=== PATIENT | female | born 2000 | race Caucasian/White ===

== ENCOUNTER → 2018-05-29 16:25 | Outpatient (CLI) | payer SELFPAY ==
[2018-05-29 17:44] LABS: Absolute Lymphocyte Count 2.63 X10^3/ul (0.83-4.51); Absolute Neutrophil Count 8.3 X10^3/uL (2.0-7.7); Basophil# 0.05 X10^3/uL; Basophil% 0.4 % (0-1); Eosinophil# 0.38 X10^3/uL; Eosinophils% 3.1 % (0-5); Hematocrit 40.6 % (37-47); Hemoglobin 13.6 g/dl (12.0-15.0); Lymphocyte # 2.63 X10^3/ul (4.0); Lymphocyte % 21.4 % (19-41); Mean Corp Hgb Conc 33.5 g/gl (32-36); Mean Corpuscular Hgb 28.6 pg (27.0-32.0); Mean Corpuscular Volume 85.5 fL (81-99); Monocyte# 0.87 X10^3/uL; Monocyte% 7.1 % (0-10); Neutrophil # 8.32 X10^3/uL (2.7-7.7); Neutrophil % 67.8 % (47-70); POSITIVE COUNT NO; POSITIVE DIFFERENTIAL NO; POSITIVE MORPHOLOGY NO; Platelet Count 382 K/mm3 (150-450); RBC Distribution Width CV 12.3 % (11.6-14.6); RBC Distribution Width SD 38.1 fl (35.1-43.9); Red Blood Count 4.75 M/mm3 (4.2-5.4); White Blood Count 12.3 K/mm3 (4.4-11.0)
[2018-05-29 18:18] LABS: AST(SGOT) 14 U/L (15-37); Alanine Aminotransfer ALT/SGPT 41 U/L (13-56); Albumin, Serum 3.8 g/dL (3.2-5.0); Alkaline Phosphatase 81 U/L (45-117); Anion Gap 9 (5-15); BUN 13 mg/dL (7-18); BUN/Creat Ratio 22.1 RATIO (10-20); Calcium,Total 8.7 mg/dL (8.5-10.1); Chloride 105 mmol/L (98-107); Creatinine, Serum 0.59 mg/dL (0.55-1.02); EST Glomerular Filtration Rate 138 mL/min (>60); Est Glom Filt Rate - Afr Amer 167 mL/min (>60); Globulin 3.8 g/dL (2.2-4.2); Glucose 91 mg/dL (74-106); Potassium 3.6 mmol/L (3.5-5.1); Protein, Total 7.6 g/dL (6.4-8.2); Sodium Level 141 mmol/L (136-145)
[2018-06-01 08:07] LABS: V-Zoster IgG (Immunity) 1253 index (Immune >165)
== END ==
PROVIDERS: Family Provider Internal Medicine; PCP Internal Medicine; Visit Provider Internal Medicine
DX: Z02.1 Encounter for pre-employment examination (principal); M08.00 Unspecified juvenile rheumatoid arthritis of unspecified site
CPT/HCPCS: 36415; 80053; 85025; 86787

== ENCOUNTER → 2019-06-10 08:50 | Outpatient (CLI) | payer OTHER, SELFPAY ==
[2019-06-09 14:25] VITALS: BMI 42.0
[2019-06-10 12:35] LABS: Absolute Lymphocyte Count 2.64 X10^3/uL (0.83-4.51); Absolute Neutrophil Count 7.1 X10^3/uL (2.0-7.7); Basophil# 0.09 X10^3/uL; Basophil% 0.8 % (0-1); Eosinophil# 0.41 X10^3/uL; Eosinophils% 3.7 % (0-5); Hematocrit 45.8 % (37-47); Hemoglobin 14.7 g/dL (12.0-15.0); Lymphocyte # 2.64 X10^3/ul (4.0); Lymphocyte % 24.1 % (19-41); Mean Corp Hgb Conc 32.1 g/dL (32-36); Mean Corpuscular Hgb 28.2 pg (27.0-32.0); Mean Corpuscular Volume 87.9 fL (81-99); Mean Platelet Vol. 9.1 fl (6.2-12.0); Monocyte% 6.4 % (0-10); NRBC Flagged by Analyzer 0 % (0-5); Neutrophil # 7.06 X10^3/uL (2.7-7.7); Neutrophil % 64.5 % (47-70); Platelet Count 378 K/mm3 (150-450); RBC Distribution Width CV 12.2 % (11.6-14.6); RBC Distribution Width SD 39.2 fl (35.1-43.9); Red Blood Count 5.21 M/mm3 (4.2-5.4)
[2019-06-10 13:06] LABS: ALB/GLOB Ratio 1.1 RATIO (0.9-2.4); AST(SGOT) 15 U/L (15-37); Alanine Aminotransfer ALT/SGPT 40 U/L (13-56); Alkaline Phosphatase 82 U/L (45-117); Anion Gap 6 (5-15); BUN 9 mg/dL (7-18); Calcium,Total 9.1 mg/dL (8.5-10.1); Chloride 105 mmol/L (98-107); Cholesterol 203 mg/dL (200); Creatinine, Serum 0.69 mg/dL (0.55-1.02); EST Glomerular Filtration Rate 114 mL/min (>60); Est Glom Filt Rate - Afr Amer 137 mL/min (>60); Globulin 3.7 g/dL (2.2-4.2); Glucose 98 mg/dL (74-106); High Density Lipoprotein 32 mg/dL; Potassium 4.4 mmol/L (3.5-5.1); Protein, Total 7.7 g/dL (6.4-8.2); Sodium Level 139 mmol/L (136-145); T4 Free Direct 0.79 ng/dL (0.76-1.46); Thyroid Stim Hormone (TSH) 1.68 uIU/mL (0.358-3.74); Triglycerides 453 mg/dL
== END ==
PROVIDERS: Family Provider Internal Medicine; PCP Internal Medicine; Visit Provider Internal Medicine
DX: F41.9 Anxiety disorder, unspecified (principal); F32.9 Major depressive disorder, single episode, unspecified; E66.01 Morbid (severe) obesity due to excess calories; Z68.41 Body mass index [BMI] 40.0-44.9, adult
CPT/HCPCS: 36415; 80053; 80061; 84439; 84443; 85025

== ENCOUNTER 2020-05-31 06:34 | Emergency (ER) | payer OTHER, SELFPAY ==
[2020-02-25 17:38] VITALS: BMI 42.0
[2020-05-31 06:35] VITALS: BP 154/103; PULSE 92; RESP 16; TEMP 36.8; O2SAT 96; BMI 45.4
--- NOTE | 2020-05-31 07:18 | ED.DCSUM_ITS ---
History of Present Illness Chief Complaint: Vag Bleeding Informant: Patient Pain: Pelvic Pain Onset: Month(s) Issue: Vaginal bleeding, Passing clots Control: BCP Narrative: Patient is a 20-year-old female with history of depression presenting with heavy vaginal bleeding. She states she has had abnormal vaginal bleeding for the past 5 and half months. States she is bled pretty much every day but most days is like a light flow. The past week and a half she is been bleeding very heavily and passing large clots. She states last night she saturated a 12-hour overnight pad within 4 and half hours. She does note increased pelvic cramping and discomfort. She is followed with [facility] and has had a transvaginal ultrasound swells her blood work to try to figure out what is going on. They have not come up with a cause at this point. Patient states she is dissatisfied with the level of care she is receiving she is also looking for a referral for a new DATA COLLECTION SPECIALIST. Patient states that she feels shaky and a little lightheaded and dizzy especially when she is having heavy flow. She has nausea associated with the pelvic cramping but none currently. She is been taking Motrin and Pamprin [id number] for her discomfort. She not had any today. She is currently on an oral contraceptive but does not feel that that is helped. She denies any other complaints or any urinary symptoms. Prior similar symptoms: Yes Past Medical History - Allergies and Home Meds Allergies/Adverse Reactions: Allergies Penicillins Allergy (Unknown, Verified 05/31/20 06:39) Hives amoxicillin [Amoxicillin] Allergy (Verified 05/31/20 06:39) Hives Primary Care Physician: Donnie Everett MD [Primary Care Provider] - Past Medical History: - - Vamsi, depression, juvenile rheumatoid arthritis, hyperlipidemia Surgical History: noncontributory Smoking Status: Never smoker Review of Systems General: Reports: - - Lightheaded, shaky. Denies: Chills, Fever, Sweats Eyes: Denies: Visual changes - bilaterally, Diplopia ENT: Denies: Rhinorrhea, Sore throat Cardiovascular: Denies: Chest pain, Palpitations Respiratory: Denies: Dyspnea, Cough, Dyspnea on exertion Gastrointestinal: Denies: Abdominal pain, Nausea, Vomiting, Diarrhea, Melena, Hematochezia Genitourinary: Reports: - - Heavy vaginal bleeding. Denies: Dysuria, Hematuria, Frequency Musculoskeletal: Denies: Back pain, Extremity Pain Skin: Denies: Rash, Wounds Neurological: Denies: Headache, Weakness, Numbness Physical Exam Vital Signs/Narrative: Vital Signs Temp Pulse Resp BP Pulse Ox 05/31/20 06:35 98.3 F 92 16 154/103 H 96 Inital Vital Signs reviewed: Yes General: Well nourished, Well developed Head: Normocephalic, Atraumatic Eyes: Perrl, EOMI. Negative for: Pale conjunctiva ENT: Moist mucous membranes, No rhinorrhea Neck: Supple, Nontender Cardiovascular: Regular rate, Regular rhythm, No murmurs Respiratory: No distress, CTA bilaterally, Chest nontender Abdomen: Soft, Nontender, Nondistended, Normal bowel sounds. Negative for: Guarding, Rebound tenderness Back: Nontender, Normal Inspection Extremities: Nontender, No edema Skin: Normal color, No rash Neurological: Alert, Oriented x3, Cranial nerves II-XII grossly intact, Normal Strength, Normal Sensation Psychological: Normal affect Diagnostic/Tx/Re-eval Laboratory Data 05/31/20 05/31/20 05/31/20 07:34 07:34 07:34 WBC 10.3 RBC 4.16 L Hgb 11.7 L Hct 36.1 L MCV 86.8 MCH 28.1 MCHC 32.4 RDW Std Deviation 38.2 RDW Coeff of Gabe 12.0 Plt Count 414 MPV 8.8 Immature Gran % (Auto) 0.300 Neut % (Auto) 54.8 Lymph % (Auto) 33.6 Haywood % (Auto) 7.3 Eos % (Auto) 3.3 Baso % (Auto) 0.7 Absolute Neuts (auto) 5.7 Absolute Lymphs (auto) 3.47 Nucleated RBC % 0 Sodium 138 Potassium 3.6 Chloride 108 H Carbon Dioxide 27.0 Anion Gap 3 L BUN 11 Creatinine 0.77 Estim Creat Clear Calc 90.64 Est GFR (MDRD) Af Amer 121 Est GFR (MDRD) Non-Af 100 BUN/Creatinine Ratio 14.3 Glucose 107 H Calcium 8.7 Serum , Qual NEGATIVE Blood Type Antibody Screen 05/31/20 07:34 WBC RBC Hgb Hct MCV MCH MCHC RDW Std Deviation RDW Coeff of Gabe Plt Count MPV Immature Gran % (Auto) Neut % (Auto) Lymph % (Auto) Haywood % (Auto) Eos % (Auto) Baso % (Auto) Absolute Neuts (auto) Absolute Lymphs (auto) Nucleated RBC % Sodium Potassium Chloride Carbon Dioxide Anion Gap BUN Creatinine Estim Creat Clear Calc Est GFR (MDRD) Af Amer Est GFR (MDRD) Non-Af BUN/Creatinine Ratio Glucose Calcium Serum , Qual Blood Type O POSITIVE Antibody Screen NEGATIVE - Treatment/Re-Evaluation Treatment: Toradol IV Re-Evaluation: Feels Better - Medical Decision/Diagnostic Studies Patient evaluated for heavy vaginal bleeding. She has had abnormal vaginal bleeding for the past 5 and half months but is been worse for the past 10 days. She associated pelvic cramping. She appears nontoxic in no acute distress. She is hemodynamically stable. Orthostatic vital signs are normal. Prior labs are reviewed through [facility] which showed a hemaglobin of 12.7 1 week ago. No significant laboratory abnormalities were seen. Patient's orthostatics are negative. Her repeat hemoglobin today is 11.7 hours the patient has had some acute blood loss. She is hemodynamically stable and stable for outpatient follow-up. I did touch base with her DATA COLLECTION SPECIALIST, Dr. Olivares who will ensure close follow-up. Patient does ask for a referral for a second DATA COLLECTION SPECIALIST for second opinion. This is given as well. Patient was started on NSAID therapy for her pain. On reevaluation she states she still has some pelvic pain but is feeling better with the Toradol. Patient is counseled on signs and symptoms requiring return to the emergency room. Patient verbalizes agreement and understand this plan. Patient discharged home in stable and improved condition. ED Disposition - Plan for ED Patient: Disposition: Home or Assisted Living Diagnosis: Dysfunctional uterine bleeding, Menometrorrhagia Instructions: ED Bleeding Menstrual Heavy Prescriptions: Ibuprofen [Motrin] 600 mg PO Q6H PRN PRN #20 tab PRN Reason: Pain Score 1-10/10 Transmission Status[id number] Referrals: Erika Valero MD [STAFF PHYSICIAN] - Additional Instructions: Please follow-up with your DATA COLLECTION SPECIALIST. Call the office today to set up appointment in the next day or 2. They should be able to see you soon. While you have been losing blood from your vaginal bleeding, you do not require an emergent transfusion, urgent surgery or admission to the hospital. At this time you are stable for outpatient follow-up. I have also given information for our local DATA COLLECTION SPECIALIST should you like a second opinion. Please continue taking the control as prescribed as well as start the Motrin to help with pain as well as the bleeding. Return with worsening symptoms. Such as bleeding through a pad an hour or fainting.
[2020-05-31] MEDS: 0.9% Normal Saline 1,000 ML 1000 ML IV (07:33)
[2020-05-31] MEDS: Ketorolac 15 MG/ML Vial IV (07:33)
[2020-05-31] MEDS: Ondansetron 4 MG/2 ML Vial IV (07:33)
[2020-05-31 07:44] LABS: Absolute Lymphocyte Count 3.47 X10^3/uL (0.83-4.51); Absolute Neutrophil Count 5.7 X10^3/uL (2.0-7.7); Basophil# 0.07 X10^3/uL; Basophil% 0.7 % (0-1); Eosinophil# 0.34 X10^3/uL; Eosinophils% 3.3 % (0-5); Hematocrit 36.1 % (37-47); Hemoglobin 11.7 g/dL (12.0-15.0); Lymphocyte # 3.47 X10^3/ul (4.0); Lymphocyte % 33.6 % (19-41); Mean Corp Hgb Conc 32.4 g/dL (32-36); Mean Corpuscular Hgb 28.1 pg (27.0-32.0); Mean Corpuscular Volume 86.8 fL (81-99); Mean Platelet Vol. 8.8 fl (6.2-12.0); Monocyte# 0.75 X10^3/uL; Monocyte% 7.3 % (0-10); NRBC Flagged by Analyzer 0 % (0-5); Neutrophil # 5.67 X10^3/uL (2.7-7.7); Neutrophil % 54.8 % (47-70); Platelet Count 414 K/mm3 (150-450); RBC Distribution Width SD 38.2 fl (35.1-43.9); Red Blood Count 4.16 M/mm3 (4.2-5.4); White Blood Count 10.3 K/mm3 (4.4-11.0)
[2020-05-31 07:51] LABS: Internal QC Validated? YES +Cl - CLEAR BKGD; Pregnancy, Serum, hCG Quali. NEGATIVE Negative
[2020-05-31 07:56] LABS: Anion Gap 3 (5-15); BUN 11 mg/dL (7-18); BUN/Creat Ratio 14.3 RATIO (10-20); Calcium,Total 8.7 mg/dL (8.5-10.1); Chloride 108 mmol/L (98-107); Creatinine, Serum 0.77 mg/dL (0.55-1.02); EST Glomerular Filtration Rate 100 mL/min (>60); Est Glom Filt Rate - Afr Amer 121 mL/min (>60); Estimated Creatinine Clearance 90.64 ml/min; Glucose 107 mg/dL (74-106); Potassium 3.6 mmol/L (3.5-5.1); Sodium Level 138 mmol/L (136-145)
[2020-05-31 08:12] VITALS: BP 129/98; BP 132/84; BP 132/87; PULSE 82; PULSE 83; PULSE 84
[2020-05-31 08:37] VITALS: BP 129/98; PULSE 84; RESP 18; O2SAT 99
== END 2020-05-31 08:55 | disposition home or self-care (01) ==
PROVIDERS: Emergency Provider Emergency Medicine; PCP Internal Medicine
DX: N93.8 Other specified abnormal uterine and vaginal bleeding (principal); N92.1 Excessive and frequent menstruation with irregular cycle
CPT/HCPCS: 80048; 84703; 85025; 86850; 86900; 86901; 96361; 96374; 96375; 99283; J7030; J2405

== ENCOUNTER → 2020-06-15 12:05 | Outpatient (CLI) | payer OTHER, SELFPAY ==
[2020-05-31 06:35] VITALS: BMI 45.4
[2020-06-15 15:23] LABS: Absolute Lymphocyte Count 2.35 X10^3/uL (0.83-4.51); Absolute Neutrophil Count 5.2 X10^3/uL (2.0-7.7); Basophil# 0.06 X10^3/uL; Basophil% 0.7 % (0-1); Eosinophil# 0.24 X10^3/uL; Eosinophils% 2.9 % (0-5); Hemoglobin 12.3 g/dL (12.0-15.0); Lymphocyte # 2.35 X10^3/ul (4.0); Lymphocyte % 28.1 % (19-41); Mean Corp Hgb Conc 31.5 g/dL (32-36); Mean Corpuscular Hgb 27.5 pg (27.0-32.0); Mean Corpuscular Volume 87.2 fL (81-99); Mean Platelet Vol. 9.1 fl (6.2-12.0); Monocyte# 0.43 X10^3/uL; Monocyte% 5.1 % (0-10); NRBC Flagged by Analyzer 0 % (0-5); Neutrophil # 5.24 X10^3/uL (2.7-7.7); Neutrophil % 62.8 % (47-70); Platelet Count 458 K/mm3 (150-450); RBC Distribution Width CV 12.2 % (11.6-14.6); RBC Distribution Width SD 39.1 fl (35.1-43.9); Red Blood Count 4.47 M/mm3 (4.2-5.4); White Blood Count 8.4 K/mm3 (4.4-11.0)
[2020-06-15 15:44] LABS: AST(SGOT) 10 U/L (15-37); Alanine Aminotransfer ALT/SGPT 21 U/L (13-56); Albumin, Serum 3.8 g/dL (3.2-5.0); Alkaline Phosphatase 61 U/L (45-117); Anion Gap 7 (5-15); BUN 15 mg/dL (7-18); BUN/Creat Ratio 19.8 RATIO (10-20); Chloride 109 mmol/L (98-107); Cholesterol 201 mg/dL (200); Creatinine, Serum 0.76 mg/dL (0.55-1.02); EST Glomerular Filtration Rate 101 mL/min (>60); Est Glom Filt Rate - Afr Amer 123 mL/min (>60); Glucose 93 mg/dL (74-106); High Density Lipoprotein 42 mg/dL; Potassium 4.3 mmol/L (3.5-5.1); Protein, Total 7.8 g/dL (6.4-8.2); Sodium Level 140 mmol/L (136-145); T4 Free Direct 1.06 ng/dL (0.76-1.46); Thyroid Stim Hormone (TSH) 1.28 uIU/mL (0.358-3.74); Triglycerides 327 mg/dL; Very Low Density Lipoprotein 65 mg/dL (5-40)
== END ==
PROVIDERS: PCP Internal Medicine; Referring Provider Internal Medicine; Visit Provider Internal Medicine
DX: N93.9 Abnormal uterine and vaginal bleeding, unspecified (principal); N92.1 Excessive and frequent menstruation with irregular cycle; E78.5 Hyperlipidemia, unspecified
CPT/HCPCS: 36415; 80053; 80061; 84439; 84443; 85025

== ENCOUNTER 2021-09-26 09:31 | Outpatient (CLI) | payer OTHER, SELFPAY ==
[2021-09-26 12:17] LABS: Absolute Lymphocyte Count 2.51 X10^3/uL (0.83-4.51); Basophil# 0.07 X10^3/uL; Basophil% 0.8 % (0-1); Eosinophils% 3.5 % (0-5); Hematocrit 38.6 % (37-47); Lymphocyte # 2.51 X10^3/ul (0.83-4.51); Lymphocyte % 29.6 % (19-41); Mean Corp Hgb Conc 33.7 g/dL (32-36); Mean Corpuscular Hgb 28.3 pg (27.0-32.0); Mean Corpuscular Volume 84.1 fL (81-99); Monocyte# 0.53 X10^3/uL; Monocyte% 6.3 % (0-10); NRBC Flagged by Analyzer 0 % (0-5); Neutrophil # 5.04 X10^3/uL (2.7-7.7); Neutrophil % 59.4 % (47-70); Platelet Count 454 K/mm3 (150-450); RBC Distribution Width CV 12.2 % (11.6-14.6); RBC Distribution Width SD 36.9 fl (35.1-43.9); Red Blood Count 4.59 M/mm3 (4.2-5.4); White Blood Count 8.5 K/mm3 (4.4-11.0)
[2021-09-26 13:00] LABS: ALB/GLOB Ratio 0.9 RATIO (0.9-2.4); AST(SGOT) 8 U/L (15-37); Alanine Aminotransfer ALT/SGPT 23 U/L (13-56); Albumin, Serum 3.6 g/dL (3.2-5.0); Alkaline Phosphatase 58 U/L (45-117); Anion Gap 7 (5-15); BUN 11 mg/dL (7-18); BUN/Creat Ratio 18.9 RATIO (10-20); Calcium,Total 8.6 mg/dL (8.5-10.1); Chloride 107 mmol/L (98-107); Cholesterol 159 mg/dL (200); Creatinine, Serum 0.58 mg/dL (0.55-1.02); EST Glomerular Filtration Rate 136 mL/min (>60); Est Glom Filt Rate - Afr Amer 164 mL/min (>60); Globulin 3.8 g/dL (2.2-4.2); Glucose 97 mg/dL (74-106); High Density Lipoprotein 41 mg/dL; Potassium 3.9 mmol/L (3.5-5.1); Protein, Total 7.4 g/dL (6.4-8.2); Sodium Level 137 mmol/L (136-145); Thyroid Stim Hormone (TSH) 1.73 uIU/mL (0.358-3.74); Triglycerides 229 mg/dL; Very Low Density Lipoprotein 46 mg/dL (5-40)
== END 2021-09-26 23:59 | disposition short-term general hospital (02) ==
LOC: BIMLAB 09:32
PROVIDERS: PCP Internal Medicine; Visit Provider Nurse Practitioner Family
DX: Z00.00 Encounter for general adult medical examination without abnormal findings (principal); M06.9 Rheumatoid arthritis, unspecified; F41.9 Anxiety disorder, unspecified; F32.9 Major depressive disorder, single episode, unspecified; E78.5 Hyperlipidemia, unspecified
CPT/HCPCS: 36415; 80053; 80061; 84443; 85025

== ENCOUNTER → 2022-09-07 | Outpatient (CLI) | payer OTHER, SELFPAY ==
[2022-09-07 12:14] LABS: Absolute Lymphocyte Count 2.23 X10^3/uL (0.83-4.51); Absolute Neutrophil Count 4.4 X10^3/uL (2.0-7.7); Basophil# 0.07 X10^3/uL; Basophil% 0.9 % (0-1); Eosinophil# 0.39 X10^3/uL; Eosinophils% 5.1 % (0-5); Hematocrit 42.9 % (37-47); Lymphocyte # 2.23 X10^3/ul (0.83-4.51); Lymphocyte % 29.3 % (19-41); Mean Corp Hgb Conc 32.6 g/dL (32-36); Mean Corpuscular Hgb 28.7 pg (27.0-32.0); Mean Corpuscular Volume 87.9 fL (81-99); Mean Platelet Vol. 8.9 fl (6.2-12.0); Monocyte# 0.48 X10^3/uL; Monocyte% 6.3 % (0-10); NRBC Flagged by Analyzer 0 % (0-5); Platelet Count 414 K/mm3 (150-450); RBC Distribution Width CV 12.4 % (11.6-14.6); RBC Distribution Width SD 40.1 fl (35.1-43.9); Red Blood Count 4.88 M/mm3 (4.2-5.4); White Blood Count 7.6 K/mm3 (4.4-11.0)
[2022-09-07 12:25] LABS: AST(SGOT) 5 U/L (15-37); Alanine Aminotransfer ALT/SGPT 22 U/L (13-56); Albumin, Serum 3.7 g/dL (3.2-5.0); Alkaline Phosphatase 69 U/L (45-117); Anion Gap 7 (5-15); BUN 12 mg/dL (7-18); BUN/Creat Ratio 21.5 RATIO (10-20); Calcium,Total 8.8 mg/dL (8.5-10.1); Chloride 107 mmol/L (98-107); Cholesterol 170 mg/dL (200); Creatinine, Serum 0.56 mg/dL (0.55-1.02); EST Glomerular Filtration Rate 142 mL/min (>60); Est Glom Filt Rate - Afr Amer 171 mL/min (>60); Globulin 3.7 g/dL (2.2-4.2); Glucose 91 mg/dL (74-106); High Density Lipoprotein 39 mg/dL; Protein, Total 7.4 g/dL (6.4-8.2); Rheumatoid Factor < 10.0 IU/mL (<15); Sodium Level 138 mmol/L (136-145); Triglycerides 152 mg/dL; Very Low Density Lipoprotein 30 mg/dL (5-40)
[2022-09-08 19:52] LABS: CCP IgG Antibodies 0 units (0-19)
== END | disposition home or self-care (01) ==
LOC: BIMLAB 09:17
PROVIDERS: PCP Internal Medicine; Referring Provider Internal Medicine; Visit Provider Internal Medicine
DX: Z00.00 Encounter for general adult medical examination without abnormal findings (principal); M06.9 Rheumatoid arthritis, unspecified
CPT/HCPCS: 36415; 80053; 80061; 85025; 86200; 86431

== ENCOUNTER → 2023-09-09 | Outpatient (CLI) | payer OTHER, SELFPAY ==
[2023-09-09 12:24] LABS: Absolute Lymphocyte Count 2.41 X10^3/uL (0.83-4.51); Absolute Neutrophil Count 5.7 X10^3/uL (2.0-7.7); Basophil# 0.09 X10^3/uL; Basophil% 0.9 % (0-1); Eosinophil# 0.42 X10^3/uL; Eosinophils% 4.4 % (0-5); Hematocrit 42.5 % (37-47); Hemoglobin 13.9 g/dL (12.0-15.0); Lymphocyte # 2.41 X10^3/ul (0.83-4.51); Lymphocyte % 25.3 % (19-41); Mean Corp Hgb Conc 32.7 g/dL (32-36); Mean Corpuscular Hgb 28.6 pg (27.0-32.0); Mean Corpuscular Volume 87.4 fL (81-99); Mean Platelet Vol. 8.9 fl (6.2-12.0); Monocyte# 0.81 X10^3/uL; Monocyte% 8.5 % (0-10); NRBC Flagged by Analyzer 0 % (0-5); Neutrophil # 5.74 X10^3/uL (2.7-7.7); Neutrophil % 60.5 % (47-70); Platelet Count 407 K/mm3 (150-450); RBC Distribution Width CV 12.3 % (11.6-14.6); RBC Distribution Width SD 39.6 fl (35.1-43.9); Red Blood Count 4.86 M/mm3 (4.2-5.4); White Blood Count 9.5 K/mm3 (4.4-11.0)
[2023-09-09 13:32] LABS: ALB/GLOB Ratio 1.1 RATIO (0.9-2.4); AST(SGOT) 10 U/L (15-37); Alanine Aminotransfer ALT/SGPT 21 U/L (13-56); Albumin, Serum 3.9 g/dL (3.2-5.0); Alkaline Phosphatase 58 U/L (45-117); Anion Gap 6 (5-15); BUN 15 mg/dL (7-18); BUN/Creat Ratio 26.3 RATIO (10-20); Calcium,Total 8.7 mg/dL (8.5-10.1); Chloride 109 mmol/L (98-107); Cholesterol 171 mg/dL (200); Creatinine, Serum 0.57 mg/dL (0.55-1.02); EST Glomerular Filtration Rate 136 mL/min (>60); Est Glom Filt Rate - Afr Amer 165 mL/min (>60); Globulin 3.6 g/dL (2.2-4.2); Glucose 87 mg/dL (74-106); High Density Lipoprotein 40 mg/dL; Potassium 4.5 mmol/L (3.5-5.1); Protein, Total 7.5 g/dL (6.4-8.2); Sodium Level 140 mmol/L (136-145); Triglycerides 136 mg/dL; Very Low Density Lipoprotein 27 mg/dL (5-40)
== END | disposition home or self-care (01) ==
LOC: BIMLAB 09:34
PROVIDERS: PCP Internal Medicine; Referring Provider Internal Medicine; Visit Provider Internal Medicine
DX: Z00.00 Encounter for general adult medical examination without abnormal findings (principal)
CPT/HCPCS: 36415; 80053; 80061; 85025

== ENCOUNTER → 2025-07-19 | Outpatient (CLI) | payer BC, SELFPAY ==
--- NOTE | 2025-07-19 15:40 | MRI_ITS ---
PROCEDURE: UPPER EXT JOINT ONLY(ROUTINE) 07/19/2025 REASON FOR EXAM: LEFT STRAIN/SPRAIN RCT/LABRAL TECHNIQUE: Procedure Code: MRIUEJ Modality: MR Procedure: UPPER EXT JOINT ONLY(ROUTINE) Multiplanar and multisequence images were obtained without IV contrast administration. COMPARISON: COMPARISON: None FINDINGS: Bone Marrow: There is no bony contusion or occult fracture. AC joint: The AC joint is aligned with no evidence of separation. There is a type 2 acromion. Rotator cuff: There is no muscular atrophy. The supraspinatus, infraspinatus, and subscapularis appear intact. The teres minor appears intact. Labrum: There is no visible labral tear. Biceps tendon: The biceps tendon is present in the biceps tendon groove, with intact anchors. Effusion: There is no significant effusion Soft Tissues: There is focal intramuscular edema in the deltoid at the margin of the acromion with a small grade 2 muscle strain. There is no soft tissue mass or adenopathy. MRI/Upper Ext Joint Only(Routine) IMPRESSION: There is focal intramuscular edema in the deltoid at the margin of the acromion with a small grade 2 muscle strain. Reading Location: [facility]
--- OUTSIDE RECORDS SUMMARY | 2025-07-19 18:38 | XMS RPT_ITS | CCD ---
Author Organization [facility] ion [facility] [place] [place] [facility] Care Team Providers Care Receiving Barn Custodian Name Role Phone AIDEE THOMPSON (CUSTOM SKI MAKER) Unavailable Unavailable KAYLA COX DO Consulting Unavailable NELSON, DR DALE Lepe Attending Unavaila ble NELSON, DR DALE Lepe Primary Care Unavaila ble NELSON, DR DALE Lepe Admitting Unavaila ble PROVIDER, UNKNOWN Consulting Unavailable PROVIDER, UNKNOWN Consulting Unavailable Dr. Donnie Everett Primary Care Provider [phone] Dr. Donnie Everett Attending Provider [phone] Dr. Donnie Everett Referring Provider [phone] Dr. Donnie Everett Primary Care Provider [phone] Dr. Donnie Everett Attending Provider [phone] Dr. Donnie Everett Referring Provider [phone] Karlos, Efewongbe Referring Unavailable Harish Mcclellan Attending Unavailable Darrellghe, Efewongbe Primary Care Unavailable Oleghe, Efewongbe Referring Unavailable Oleghe, Efewongbe Attending Unavailable Oleghe, Efewongbe Primary Care Unavailable Oleghe, Efewongbe Referring Unavailable Oleghe, Efewongbe Attending Unavailable Oleghe, Efewongbe Primary Care Unavailable Oleghe, Efewongbe Referring Unavailable Oleghe, Efewongbe Attending Unavailable Oleghe, Efewongbe Primary Care Unavailable Allergies Allergy Classification Reported Allergen(s) Allergy Type Date of Onset Reaction(s) Facility (1 source) penicillin; Translations: [PENICILLIN G] [facility] Amoxicillin Drug Allergy 09-07-[address] [facility] (2 sources) Penicillins Allergy to substance 09-07-[address] [facility] (1 source) Amoxicillin Drug Allergy 04-23-2024 [facility] Repository (1 source) Penicillins Drug allergy (disorder) 04-23-2024 [facility] Repository Medications Current Medications Medication Drug Class(es) Dates Sig (Normalized) Sig (Original) acetaminophen 500 mg / pamabrom 25 mg / pyrilamine maleate 15 mg oral tablet (2 sources) Start: 12-09-2018 take 2 tablets by mouth every six hours Acetaminophen-Dasha abrom-Pyrilam Active 2 TABLET PO EVERY 6 HOURS December 08, 2018 11:00pm ondansetron 4 mg disintegrating oral tablet (4 sources) Serotonin-3 Receptor Antagonist Start: 11-01-2021 End: 09-07-2022 take 4 mg by mouth every eight hours Ondansetron Active 4 MG PO Q8H September 07, 2022 9:08am Completed/Discontinued Medications Medication Drug Class(es) Dates Sig (Normalized) Sig (Original) acetaminophen 300 mg / codeine phosphate 30 mg oral tablet (2 sources) Opioid Agonist Start: 07-16-2014 End: 05-29-2018 take 1 tablet by mouth every six hours as needed Acetaminophen-Codei ne Discontinued 1 - 2 TABLET PO EVERY 6 HOURS NEEDED July 16, 2014 12:00am May 29, 2018 2:27pm ascorbic acid 500 mg oral capsule (2 sources) Vitamin C Start: 05-29-2018 End: 12-09-2018 Ascorbic Acid (Vitamin C) Discontinued MG PO May 28, 2018 11:00pm December 09, 2018 1:46pm bee pollen 550 mg oral capsule (2 sources) Start: 05-29-2018 End: 11-04-2018 Bee Pollen Discontinued MG PO May 28, 2018 11:00pm November 04, 2018 2:09pm busPIRone hydrochloride 7.5 mg oral tablet (8 sources) Start: 09-17-2019 End: 09-07-2022 take 7.5 mg by mouth twice daily Buspirone Discontinued 7.5 MG PO TWICE A DAY 180 90 October 21, 2020 8:08am September 07, 2022 8:49am Start: 07-14-2019 End: 09-17-2019 take 7.5 mg by mouth twice daily Buspirone Discontinued 7.5 MG PO TWICE A DAY 180 60 July 14, 2019 2:14pm September 17, 2019 3:13pm Start: 06-09-2019 End: 07-14-2019 take 5 mg by mouth twice daily Buspirone Discontinued 5 MG PO TWICE A DAY 60 June 08, 2019 11:00pm July 14, 2019 2:14pm escitalopram 10 mg oral tablet (8 sources) Serotonin Reuptake Inhibitor Start: 03-12-2019 End: 07-14-2019 Escitalopram Oxalate Discontinued 10 MG PO DAILY 90 March 12, 2019 1:49pm July 14, 2019 2:14pm Take with 5 mg tablet for a total daily dose of 15 mg Start: 03-12-2019 End: 06-09-2019 Escitalopram Oxalate Discont inued 5 MG PO DAILY 90 March 11, 2019 11:00pm June 09, 2019 1:48pm Take with 10 mg tablet for a total daily dose of 15 mg Start: 12-09-2018 End: 03-12-2019 take 10 mg by mouth once daily Escitalopram Oxalate Di scontinued 10 MG PO DAILY 90 December 09, 2018 1:57pm March 12, 2019 1:52pm Start: 11-04-2018 End: 12-09-2018 take 5 mg by mouth once daily Escitalopram Oxalate Dis continued 5 MG PO DAILY 60 November 04, 2018 12:00am December 09, 2018 1:58pm Norgestimate-Ethinyl Estradiol (2 sources) Progestin, Estrogen Start: 05-31-2020 End: 09-09-2023 take 1 tablet by mouth once daily Norgestimate-Ethinyl Estradiol Discontinued 1 TABLET PO DAILY May 30, 2020 11:00pm September 09, 2023 9:06am Start: 05-31-2020 take 1 tablet by priscilla th once daily Norgestimate-Ethinyl Estradiol Active 1 TABLET PO DAILY May 30, 2020 11:00pm fenofibrate 54 mg oral tablet (18 sources) Peroxisome Proliferator Receptor alpha Agonist Start: 06-24-2020 End: 09-09-2023 take 108 mg by mouth once daily Fenofibrate Discontinued 108 MG PO DAILY 28 September 18, 2021 1:41pm September 26, 2021 9:18am Start: 06-16-2020 End: 06-24-2020 take 120 mg by mouth once daily Fenofibrate Discontinued 120 MG PO DAILY 60 June 16, 2020 1:00pm June 24, 2020 3:48pm Start: 06-10-2019 End: 06-16-2020 take 54 mg by mouth once daily Fenofibrate Discontinue d 54 MG PO DAILY 90 May 16, 2020 11:03am June 16, 2020 1:00pm ibuprofen 600 mg oral tablet (6 sources) Nonsteroidal Anti-inflammatory Drug Start: 05-31-2020 End: 09-09-2023 take 600 mg by mouth every six hours as needed Ibuprofen Discontinued 600 MG PO EVERY 6 HOURS NEEDED May 30, 2020 11:00pm September 09, 2023 9:06am Start: 12-09-2018 End: 12-09-2018 take 200 mg by mouth three to four times daily Ibuprofen Discontinued 200 MG PO 3 to 4 times per day December 08, 2018 11:00pm December 09, 2018 1:47pm Start: 05-29-2018 take 200 mg by mouth three to four times daily Ibuprofen Active 200 MG PO 3 to 4 times per day May 28, 2018 11:00pm metroNIDAZOLE 250 mg oral tablet (2 sources) Nitroimidazole Antimicrobial Start: 11-01-2021 End: 09-07-2022 take 250 mg by mouth every eight hours Metronidazole Discontinued 250 MG PO Q8H November 01, 2021 12:00am September 07, 2022 8:50am Problems Problem Classification Problem Date Documented Da te Episodic/Chronic Anxiety disorders (5 sources) Anxiety; Translations: [Anxiety disorder, unspecified] 11-04-2018 Chronic Disorders of lipid metabolism (4 sources) Hyperlipidemia; Translations: [Hyperlipidemia, unspecified] 09-26-2021 Chronic Menstrual disorders (2 sources) Menometrorrhagia; Translations: [Excessive and frequent menstruation with irregular cycle] 06-01-2020 Chronic Nausea and vomiting (3 sources) Nausea and vomiting; Translations: [Nausea with vomiting, unspecified] 09-07-2022 Episodic Other female genital disorders (2 sources) Abnormal uterine bleeding; Translations: [Other specified abnormal uterine and vaginal bleeding] 06-01-2020 Chronic Other gastrointestinal disorders (2 sources) Diarrhea; Translations: [Diarrhea, unspecified] 11-01-2021 Episodic Other nutritional; endocrine; and metabolic disorders (2 sources) Body mass index 40+ - severely obese; Translations: [Morbid (severe) obesity due to excess calories] 06-09-2019 Chronic Other upper respiratory disease (2 sources) Seasonal allergy; Translations: [Other seasonal allergic rhinitis] 05-31-2020 Chronic Rheumatoid arthritis and related disease (6 sources) Rheumatoid arthritis; Translations: [Rheumatoid arthritis, unspecified] Onset: 04-23-2024 05-31-2020 Chronic Unclassified (1 source) Unknown / UNK(Unknown) Onset: 03-19-2017 Results Test Name Value Interpretation Reference Range Facility Internal Medicine Office Vis itojason 04-23-2024 Internal Medicine Office Visit [facility] [address] [address] [place] [address] OFFICE VISIT Date of Service: 04/23/24 MR#: [id number] Acct: [id number] Name: LORY MOORE Rep #: [id number] : 2000 Provider: DAMIAN Quiñones Age/Sex: 24/F Location: [facility] Status: Signed Intake Vital Signs 09/09/23 09:09 04/23/24 14:38 Height 5 ft 2 in 5 ft 2 in Weight: 226 lb 241 lb BMI 41.3 44.0 BP 112/76 122/76 H Blood Pressure Location Lt brachial Lt brachial Position Sitting Sitting Respiration 16 14 Pulse 92 90 Pulse Source Monitor Monitor Temp 97.1 F L 97.2 F L Temp Source Temporal Temporal Pulse Oximetry (%) 98 98 Oxygen Delivery Method room air room air Intake Visit Reasons: acute - discuss arthritis/referral Agriculture Inspector Required: No Is patient in pain?: No Allergies Penicillins Allergy (Unknown, Verified 04/23/24 14:30) Hives amoxicillin (Amoxicillin) Allergy (Verified 04/23/24 14:30) Hives Medications ???Medication ???Instructions ???Recorded ???Confirmed ???Type ibuprofen 200 mg capsule 200 mg PO TID-QID PRN Pain Or Fever 05/29/18 04/23/24 History acetaminophen 500 mg-pamabrom 25 2 tab PO Q6H PRN Pain Or Fever 12/09/18 04/23/24 History mg-pyrilamine 15 mg tablet ondansetron 4 mg disintegrating 4 mg PO Q8H PRN nausea and 09/07/22 04/23/24 Rx tablet vomiting #20 tabs Nurse's Note: Was dx'd w/ juvenille RA. States it went dormant around age 10, and hasn't really had any issues until a few years ago. States she has been having flare ups, wants a referral to [facility] arthritis. States she will not have her new insurance kick in until next month though. Will have BC/BS. Has been treating flares w/ ibuprofen which helps some. States that she wants a medical exempt from vaccines. She is travel nursing. She is going to be due for flu vaccine soon states last year when she got it she had a bad flare up and couldn't walk for a week. She recently got a TDAP which put her in another flare. [facility] Medical History Preventative health care Nausea vomiting Diarrhea Rheumatoid arthritis Seasonal allergies Surgical History History of tonsillectomy Family History Grandfather Congestive heart failure Grandmother Brain tumor Father Diabetes Mother Diabetes Social History adopted: No household members: family current occupational status: employed current occupation: [employer] pets and animals: Yes (2) pets and animals: dog(s) history of recent travel: No Smoking Status: Never smoker alcohol intake: current alcohol intake frequency: holidays/special occasions only substance use type: does not use diet: other well-balanced diet: daily or most days caffeine: Yes (1) Type: coffee frequency: 3-4 times per week seatbelt use: always do you feel safe at home: Yes HPI HPI Details: LORY MOORE, is a 24 F who presents to the office today to discuss follow-up / referral to a tar man. 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 She was placed on medication when she was young but just didn't seem like it did a whole lot for her. Eventually the med seemed to calm her pains down but she did not end up staying on medication for long thereafter. She has not been on any medications daily since then doing some PRN medications such as NSAIDs. She still does have flares that can be random at the same time can occur if she is excessively active. Flare-ups are different with each flareup typically involving upper extremities including hands, wrists, and even shoulders. Every once in a while she would notice ankle / feet pains but again mainly upper extremities. She does not notice any obvious swelling and has not seen redness. She has not had any dietary changes and has not noticed any food triggers. ROS Const Constitutional: Positive for body ache; No chills, excessive sweating, fatigue, fever(s), frequent falls, headache(s), snoring, weakness, sleep problems or change in appetite Eyes Eyes: No blurry vision, change in vision, eye pain or Light sensitivity ENT ENT: No abnormal hearing, ear or mastoid pain, tinnitus, nasal congestion, headache(s), neck pain or sore throat Resp Respiratory: No cough, shortness of breath, snoring or wheezing Cardio Cardiology: No chest pain at rest, chest pain with exertion, excessive sweating, shortness of breath, dyspnea on exertion, lightheadedness, orthopnea or palpitations Gastro GI: No abdominal pain, change in bowel habits, constipation, cramping, diarrhea, nausea/dyspepsia or vo (more content not included)... Normal [facility] Absolute lymphocyte countOrd ered By: Tatyhayleyabidiogo Everett on 09-09-2023 Lymphocytes Auto (Unsp spec) [#/Vol] 2.41 10*3/uL 0.83-4.51 [facility] Basophil percentageOrdered B y: Donnie Everett on 09-09-2023 Basophils/100 WBC (Bld) 0.9 % 0-1 [facility] Bilirubin [Mass/Vol] 0.40 mg/dL 0.20-1.00 [facility] Comment on above: For patients on eltr ombopag therapy, use of Dimension [place] TBIL is not recommended. Chloride [Moles/Vol] 109 mmol/L 98-107 [facility] Cholesterol [Mass/Vol] 171 mg/dL <200 [facility] Comment on above: <200 mg/dL Desirable 200-240 mg/dL Borderline >240 mg/dL High Risk Eosinophils/100 WBC (Bld) 4.4 % 0-5 [facility] Glucose [Mass/Vol] 87 mg/dL 74-106 [facility] Neutrophils (Bld) [#/Vol] 5.7 10*3/uL 2.0-7.7 [facility] Neutrophils/100 WBC (Bld) 60.5 % 47-70 [facility] Potassium [Moles/Vol] 4.5 mmol/L 3.5-5.1 [facility] Protein [Mass/Vol] 7.5 g/dL 6.4-8.2 [facility] Sodium [Moles/Vol] 140 mmol/L 136-145 [facility] Triglyceride [Mass/Vol] 136 mg/dL <199 [facility] Comment on above: The drugs N-Acetylcy steine and Metamizole may falsely depress this assay.Serum Triglycerides Reference Interval Normal <150 mg/dL Borderline high 150 - 199 mg/dL High 200 - 499 mg/dL Very High > or = 500 mg/dL WBC (Bld) [#/Vol] 9.5 10*3/uL 4.4-11.0 [facility] Blood erythrocytes count (nu mber/volume)Ordered By: Donnie Everett on 09-09-2023 RBC (Bld) [#/Vol] 4.86 10*6/uL 4.2-5.4 [facility] Blood hemoglobin measurement (mass/volume)Ordered By: Donnie Everett on 09-09-2023 Hemoglobin (Bld) [Mass/Vol] 13.9 g/dL 12.0-15.0 [facility] Blood lymphocytes/100 leukoc ytesOrdered By: Donnie Everett on 09-09-2023 Lymphocytes/100 WBC (Bld) 25.3 % 19-41 [facility] Blood monocytes/100 leukocyt esOrdered By: Donnie Everett on 09-09-2023 Monocytes/100 WBC (Bld) 8.5 % 0-10 [facility] Blood platelet mean volumeOr dered By: Donnie Everett on 09-09-2023 Platelet mean volume (Bld) [Entitic vol] 8.9 fL 6.2-12.0 [facility] CBC W/Diff, Automatedon Absolute Lymph 2.41 X10 3/uL Normal 0.83-4.51 [facility] Comment on above: Performed By: #### L 100.0100, L500.4050, L500.4100 #### [facility] [address] [place], [address] Absolute Neut 5.7 X10 3/uL Normal 2.0-7.7 [facility] Comment on above: Performed By: #### L 100.0100, L500.4050, L500.4100 #### [facility] [address] [place], [address] Basophils/100 WBC (Bld) 0.9 % Normal 0-1 [facility] Comment on above: Performed By: #### L 100.0100, L500.4050, L500.4100 #### [facility] [address] [place], [address] Eosinophils/100 WBC (Bld) 4.4 % Normal 0-5 [facility] Comment on above: Performed By: #### L 100.0100, L500.4050, L500.4100 #### [facility] [address] [place], [address] Erythrocyte distribution width (RBC) [Ratio] 12.3 % Normal 11.6-14.6 [facility] Comment on above: Performed By: #### L 100.0100, L500.4050, L500.4100 #### [facility] [address] [place], [address] Hematocrit (Bld) [Volume fraction] 42.5 % Normal 37-47 [facility] Comment on above: Performed By: #### L 100.0100, L500.4050, L500.4100 #### [facility] [address] [place], [address] Hemoglobin (Bld) [Mass/Vol] 13.9 g/dL Normal 12.0-15.0 [facility] Comment on above: Performed By: #### L 100.0100, L500.4050, L500.4100 #### [facility] [address] [place], [address] IG% 0.400 Normal 0.0-0.9 [facility] Comment on above: Result Comment: IG% - Immature Granulocytes (promyelocytes, myelocytes and metamyelocytes) > 1% indicates that a LEFT SHIFT is Present. Performed By: #### L 100.0100, L500.4050, L500.4100 #### [facility] [address] [place], [address] Lymphocytes/100 WBC (Bld) 25.3 % Normal 19-41 [facility] Comment on above: Performed By: #### L 100.0100, L500.4050, L500.4100 #### [facility] [address] [place], [address] MCH (RBC) [Entitic mass] 28.6 pg Normal 27.0-32.0 [facility] Comment on above: Performed By: #### L 100.0100, L500.4050, L500.4100 #### [facility] [address] [place], [address] MCHC (RBC) [Mass/Vol] 32.7 g/dL Normal 32-36 [facility] Comment on above: Performed By: #### L 100.0100, L500.4050, L500.4100 #### [facility] [address] [place], [address] MCV (RBC) [Entitic vol] 87.4 fL Normal 81-99 [facility] Comment on above: Performed By: #### L 100.0100, L500.4050, L500.4100 #### [facility] [address] [place], [address] Monocytes/100 WBC (Bld) 8.5 % Normal 0-10 [facility] Comment on above: Performed By: #### L 100.0100, L500.4050, L500.4100 #### [facility] [address] [place], [address] Neutrophils/100 WBC (Bld) 60.5 % Normal 47-70 [facility] Comment on above: Performed By: #### L 100.0100, L500.4050, L500.4100 #### [facility] [address] [place], [address] Nucleated RBC (Bld) [#/Vol] 0 10*3/uL Normal 0-5 [facility] Comment on above: Performed By: #### L 100.0100, L500.4050, L500.4100 #### [facility] [address] [place], [address] Platelet mean volume (Bld) [Entitic vol] 8.9 fL Normal 6.2-12.0 [facility] Comment on above: Performed By: #### L 100.0100, L500.4050, L500.4100 #### [facility] [address] [place], [address] Platelets (Bld) [#/Vol] 407 10*3/uL Normal 150-450 [facility] Comment on above: Performed By: #### L 100.0100, L500.4050, L500.4100 #### [facility] [address] [place], [address] RBC (Bld) [#/Vol] 4.86 10*6/uL Normal 4.2-5.4 [facility] Comment on above: Performed By: #### L 100.0100, L500.4050, L500.4100 #### [facility] [address] [place], [address] RDW SD 39.6 fl Normal 35.1-43.9 [facility] Comment on above: Performed By: #### L 100.0100, L500.4050, L500.4100 #### [facility] [address] [place], [address] WBC (Bld) [#/Vol] 9.5 10*3/uL Normal 4.4-11.0 [facility] Comment on above: Performed By: #### L 100.0100, L500.4050, L500.4100 #### [facility] [address] [place], [address] Comprehensive Metabolic Prof ilon 09-09-2023 Albumin [Mass/Vol] 3.9 g/dL Normal 3.2-5.0 [facility] Comment on above: Performed By: #### L 100.0100, L500.4050, L500.4100 #### [facility] [address] [place], [address] Albumin/Globulin [Mass ratio] 1.1 {ratio} Normal 0.9-2.4 [facility] Comment on above: Performed By: #### L 100.0100, L500.4050, L500.4100 #### [facility] [address] [place], [address] ALK P 58 U/L Normal 45-117 [facility] Comment on above: Performed By: #### L 100.0100, L500.4050, L500.4100 #### [facility] [address] [place], [address] ALT [Catalytic activity/Vol] 21 U/L Normal 13-56 [facility] Comment on above: Performed By: #### L 100.0100, L500.4050, L500.4100 #### [facility] [address] [place], [address] AST [Catalytic activity/Vol] 10 U/L Low 15-37 [facility] Comment on above: Performed By: #### L 100.0100, L500.4050, L500.4100 #### [facility] [address] [place], [address] Bilirubin [Mass/Vol] 0.40 mg/dL Normal 0.20-1.00 [facility] Comment on above: Result Comment: For patients on eltrombopag therapy, use of Dimension [place] TBIL is not recommended. Performed By: #### L 100.0100, L500.4050, L500.4100 #### [facility] [address] [place], [address] BUN/CRE 26.3 RATIO High 10-20 [facility] Comment on above: Performed By: #### L 100.0100, L500.4050, L500.4100 #### [facility] [address] [place], [address] CA,Total 8.7 mg/dL Normal 8.5-10.1 [facility] Comment on above: Performed By: #### L 100.0100, L500.4050, L500.4100 #### [facility] [address] [place], [address] Chloride [Moles/Vol] 109 mmol/L High 98-107 [facility] Comment on above: Performed By: #### L 100.0100, L500.4050, L500.4100 #### [facility] [address] [place], [address] CO2 [Moles/Vol] 25.0 mmol/L Normal 21.0-32.0 [facility] Comment on above: Performed By: #### L 100.0100, L500.4050, L500.4100 #### [facility] [address] [place], [address] Creatinine [Mass/Vol] 0.57 mg/dL Normal 0.55-1.02 [facility] Comment on above: Result Comment: The validity of the calculated GFR GFRAA in patients over 70 years has not been determined. Clinical correlation is essential. Performed By: #### L 100.0100, L500.4050, L500.4100 #### [facility] [address] [place], [address] EST GFR - AA 165 mL/min Normal >60 [facility] Comment on above: Result Comment: Afri can [place]ic GFR Calc Performed By: #### L 100.0100, L500.4050, L500.4100 #### [facility] [address] [place], [address] GAP 6 Normal 5-15 [facility] Comment on above: Performed By: #### L 100.0100, L500.4050, L500.4100 #### [facility] [address] [place], [address] GFR/1.73 sq M.predicted among non-blacks MDRD (S/P/Bld) [Vol rate/Area] 136 mL/min/{1.73_m2} Normal >60 [facility] Comment on above: Result Comment: Non- GFR Calc Performed By: #### L 100.0100, L500.4050, L500.4100 #### [facility] [address] [place], [address] Globulin (S) [Mass/Vol] 3.6 g/dL Normal 2.2-4.2 [facility] Comment on above: Performed By: #### L 100.0100, L500.4050, L500.4100 #### [facility] [address] [place], [address] Glucose [Mass/Vol] 87 mg/dL Normal 74-106 [facility] Comment on above: Performed By: #### L 100.0100, L500.4050, L500.4100 #### [facility] [address] [place], [address] Potassium [Moles/Vol] 4.5 mmol/L Normal 3.5-5.1 [facility] Comment on above: Performed By: #### L 100.0100, L500.4050, L500.4100 #### [facility] [address] [place], [address] Sodium [Moles/Vol] 140 mmol/L Normal 136-145 [facility] Comment on above: Performed By: #### L 100.0100, L500.4050, L500.4100 #### [facility] [address] [place], [address] T PROT 7.5 g/dL Normal 6.4-8.2 [facility] Comment on above: Performed By: #### L 100.0100, L500.4050, L500.4100 #### [facility] [address] [place], [address] Urea nitrogen [Mass/Vol] 15 mg/dL Normal 7-18 [facility] Comment on above: Performed By: #### L 100.0100, L500.4050, L500.4100 #### [facility] [address] [place], [address] Determination of erythrocyte mean corpuscular volume (MCV)Ordered By: Donnie Everett on 09-09-2023 MCV (RBC) [Entitic vol] 87.4 fL 81-99 [facility] Hematocrit Auto (Bld) [Volum e fraction]Ordered By: Donnie Everett on 09-09-2023 Hematocrit (Bld) [Volume fraction] 42.5 % 37-47 [facility] Internal Medicine Office Vis mya 09-09-2023 Internal Medicine Office Visit [facility] [address] [place] [address] [address] [place] [id number] OFFICE VISIT Date of Service: 09/09/23 MR#: [id number] Acct: [id number] Name: LORY MOORE Rep #: [id number] : 2000 Provider: Dr. Donnie zapien MD Age/Sex: 23/F Location: [facility] [place] Status: Signed Intake Vital Signs 09/07/22 08:46 09/09/23 09:09 Height 5 ft 2 in 5 ft 2 in Weight: 226 lb BMI 41.3 BP 112/76 Blood Pressure Location Lt brachial Position Sitting Respiration 16 Pulse 92 Pulse Source Monitor Temp 97.1 F L Temp Source Temporal Pulse Oximetry (%) 98 Oxygen Delivery Method room air Intake Visit Reasons: YEARLY Chief Complaint: 1 YR FU Agriculture Inspector Required: No Is patient in pain?: No Allergies Penicillins Allergy (Unknown, Verified 09/09/23 09:04) Hives amoxicillin [Amoxicillin] Allergy (Verified 09/09/23 09:04) Hives Medications ibuprofen 200 mg capsule 200 mg PO TID-QID PRN Pain Or Fever 05/29/18 [History Confirmed 09/09/23] acetaminophen 500 mg-pamabrom 25 mg-pyrilamine 15 mg tablet 2 tab PO Q6H PRN Pain Or Fever 12/09/18 [History Confirmed 09/09/23] ondansetron 4 mg disintegrating tablet 4 mg PO Q8H PRN nausea and vomiting #20 tabs 09/07/22 [Rx Confirmed 09/09/23] Nurse's Note: Was told insurance wants labs. [facility] Medical History Diarrhea Nausea vomiting Preventative health care Rheumatoid arthritis Seasonal allergies Surgical History History of tonsillectomy Family History Grandfather Congestive heart failure Grandmother Brain tumor Father Diabetes Mother Diabetes Social History (Updated 09/09/23 @ 09:09 by Madalyn Han MA) adopted: No household members: family current occupational status: employed current occupation: [employer] pets and animals: Yes (2) pets and animals: dog(s) history of recent travel: No Smoking Status: Never smoker alcohol intake: current alcohol intake frequency: holidays/special occasions only substance use type: does not use diet: other well-balanced diet: daily or most days caffeine: Yes (1) Type: coffee frequency: 3-4 times per week seatbelt use: always do you feel safe at home: Yes HPI HPI Chief Complaint: 1 YR FU Details: LORY MOORE, is a 23 F who presents to the office today for yearly visit. No significant changes since her last visit. History of hyperlipidemia on fenofibrate however she states that she really has not taken it as much hoping to manage it by lifestyle and dietary changes but she has not done so much of in the last couple of months but started again recently. No tobacco alcohol abuse. She states that she tries to exercise. ROS Const Constitutional: No body ache, chills, excessive sweating, fatigue, fever(s), frequent falls, headache(s), snoring, weakness, sleep problems or change in appetite Eyes Eyes: No blurry vision, change in vision, bulging eyes, floaters, eye pain or Light sensitivity ENT ENT: No abnormal hearing, ear or mastoid pain, tinnitus, balance problems, nosebleed/epistaxis, nasal congestion, headache(s), neck pain or sore throat Resp Respiratory: No cough, excessive phlegm production, pain on inspiration, shortness of breath, snoring or wheezing Cardio Cardiology: No chest pain at rest, chest pain with exertion, excessive sweating, shortness of breath, dyspnea on exertion, lightheadedness, orthopnea or palpitations Gastro GI: No abdominal pain, change in bowel habits, constipation, cramping, diarrhea, nausea/dyspepsia or vomiting Genitourinary-Female: No burning urination, painful urination, urinary incontinence, urinary frequency, abnormal vaginal bleeding or pelvic pain Musc Musculoskeletal: No abnormal gait, joint pain, back pain, limited range of motion, neck pain or numbness Skin Skin: No dry skin, redness, lesions, itchy eyes, rash or wounds Neuro Neurology: No abnormal gait, abnormal hearing, weakness, frequent falls, headache(s), memory loss or numbness Psych Psychiatric: No anxiety, No change in appetite, No depression, No memory loss and No Thoughts of harming yourself/Others Endo Endocrine: No cold intolerance, excessive sweating, fatigue, flushing, heat intolerance, increased thirst/drinking or increased hunger Aller/Imm Allergy/Immunologic: No itchy eyes, seasonal allergy symptoms, hives or wheezing Haim/Lymp Hematologic/Lymphatic: No easy bleeding, easy bruising, enlarged lymph nodes or other Exam Const General: cooperative, comfortable and no acute distress Orientation: alert, awake and oriented x3 [facility] Head: normal to inspection, normocephalic and atraumatic E (more content not included)... Normal [facility] - Chemistry and C hemistry - challengeOrdered By: Donnie Everett on 09-09-2023 ALP [Catalytic activity/Vol] 58 U/L 45-117 [facility] ALT [Catalytic activity/Vol] 21 U/L 13-56 [facility] CO2 [Moles/Vol] 25.0 mmol/L 21.0-32.0 [facility] Globulin (S) [Mass/Vol] 3.6 g/dL 2.2-4.2 [facility] Urea nitrogen/Creatinine [Mass ratio] 26.3 mg/mg 10-20 [facility] - Hematology and Cell countsOrdered By: Donnie Everett on 09-09-2023 Erythrocyte distribution width (RBC) [Entitic vol] 39.6 fL 35.1-43.9 [facility] Erythrocyte distribution width (RBC) [Ratio] 12.3 % 11.6-14.6 [facility] Immature granulocytes/100 WBC (Bld) 0.400 % 0.0-0.9 [facility] Comment on above: IG% - Immature Granu locytes (promyelocytes, myelocytes and metamyelocytes) > 1% indicates that a LEFT SHIFT is Present. MCH (RBC) [Entitic mass] 28.6 pg 27.0-32.0 [facility] Nucleated RBC/100 WBC (Bld) [Ratio] 0 % 0-5 [facility] Lipid Profileon 09-09-2023 Cholesterol [Mass/Vol] 171 mg/dL Normal 200 [facility] Comment on above: Result Comment: <200 mg/dL Desirable 200-240 mg/dL Borderline >240 mg/dL High Risk Performed By: #### L 100.0100, L500.4050, L500.4100 #### [facility] [address] [place], [address] Cholesterol in HDL [Mass/Vol] 40 mg/dL Normal [facility] Comment on above: Result Comment: The drugs N-Acetylcysteine and Metamizole may falsely depress this assay. Reference Range HDL <40 mg/dL Low HDL Cholesterol HDL >or= 60 mg/dL High HDL Cholesterol Performed By: #### L 100.0100, L500.4050, L500.4100 #### [facility] [address] [place], [address] Cholesterol in LDL [Mass/Vol] 104 mg/dL Normal 0-130 [facility] Comment on above: Performed By: #### L 100.0100, L500.4050, L500.4100 #### [facility] [address] [place], [address] Cholesterol in VLDL [Mass/Vol] 27 mg/dL Normal 5-40 [facility] Comment on above: Performed By: #### L 100.0100, L500.4050, L500.4100 #### [facility] [address] [place], [address] Triglyceride [Mass/Vol] 136 mg/dL Normal [facility] Comment on above: Result Comment: The drugs N-Acetylcysteine and Metamizole may falsely depress this assay. Serum Triglycerides Reference Interval Normal <150 mg/dL Borderline high 150 - 199 mg/dL High 200 - 499 mg/dL Very High > or = 500 mg/dL Performed By: #### L 100.0100, L500.4050, L500.4100 #### [facility] [address] [place], [address] MCHC Auto (RBC) [Mass/Vol]Or dered By: Donnie Everett on 09-09-2023 MCHC (RBC) [Mass/Vol] 32.7 g/dL 32-36 [facility] No Panel InformationOrdered By: Donnie Everett on 09-09-2023 Estimated GFR (MDRD) Amer 165 mL/min >60 [facility] Comment on above: GFR Calc Estimated GFR (MDRD) Non-Af Amer 136 mL/min >60 [facility] Comment on above: Non- GFR Calc Platelets bldOrdered By: Jovi Everett on 09-09-2023 Platelets (Bld) [#/Vol] 407 10*3/uL 150-450 [facility] Serum or plasma albumin luciano urement (mass/volume)Ordered By: Donnie Everett on 09-09-2023 Albumin [Mass/Vol] 3.9 g/dL 3.2-5.0 [facility] Serum or plasma albumin/glob ulin mass ratioOrdered By: Donnie Everett on 09-09-2023 Albumin/Globulin [Mass ratio] 1.1 {ratio} 0.9-2.4 [facility] Serum or plasma calcium luciano urement (mass/volume)Ordered By: Donnie Everett on 09-09-2023 Calcium [Mass/Vol] 8.7 mg/dL 8.5-10.1 [facility] Serum or plasma cholesterol in HDL measurement (mass/volume)Ordered By: Donnie Everett on 09-09-2023 Cholesterol in HDL [Mass/Vol] 40 mg/dL >40 [facility] Comment on above: The drugs N-Acetylcy steine and Metamizole may falsely depress this assay. Reference Range HDL <40 mg/dL Low HDL Cholesterol HDL >or= 60 mg/dL High HDL Cholesterol Serum or plasma cholesterol in VLDL measurement (mass/volume)Ordered By: Donnie Everett on 09-09-2023 Cholesterol in VLDL [Mass/Vol] 27 mg/dL 5-40 [facility] Serum or plasma creatinine m easurement (mass/volume)Ordered By: Donnie Everett on 09-09-2023 Creatinine [Mass/Vol] 0.57 mg/dL 0.55-1.02 [facility] Comment on above: The validity of the calculated GFR & GFRAA in patients over 70 years has not been determined. Clinical correlation is essential. Serum or plasma low density lipoprotein (LDL) cholesterol measurement (mass/volume)Ordered By: Donnie Everett on 09-09-2023 Cholesterol in LDL [Mass/Vol] 104 mg/dL 0-130 [facility] Serum or plasma urea nitroge n measurement (mass/volume)Ordered By: Donnie Everett on 09-09-2023 Urea nitrogen [Mass/Vol] 15 mg/dL 7-18 [facility] Thin prep Papanicolaou smear with manual screeningOrdered By: Donnie Everett on 09-09-2023 Thin prep Papanicolaou smear with manual screening 10 U/L 15-37 [facility] Thin prep Papanicolaou smear with manual screening 6 5-15 [facility] GLUon 06-20-2023 Glucose [Mass/Vol] 84 mg/dL Normal 70-110 [facility] ([place]) Comment on above: Performed By: #### Ambrosio GARCIA LIPID #### [address] [address] LIPIDon 06-20-2023 Cholesterol [Mass/Vol] 166 mg/dL Normal 50-199 [facility] ([place]) Comment on above: Result Comment: Chol esterol Reference Interval: Less than 200 Desirable 200-239 Borderline high risk 240 and above High risk Performed By: #### Ambrosio GARCIA, LIPID #### [address] [address] Cholesterol in HDL [Mass/Vol] 40 mg/dL Normal 40-59 [facility] ([place]) Comment on above: Performed By: #### Amrbosio GARCIA, LIPID #### [address] [address] Cholesterol in LDL [Mass/Vol] 92 mg/dL Normal 0-129 [facility] ([place]) Comment on above: Performed By: #### Ambrosio GARCIA, LIPID #### [address] [address] Triglyceride [Mass/Vol] 169 mg/dL High 3-149 [facility] ([place]) Comment on above: Performed By: #### Ambrosio GARCIA, LIPID #### [address] [place], [place] [address] Absolute lymphocyte countOrd ered By: Dr. Everett on 09-07-2022 Lymphocytes Auto (Unsp spec) [#/Vol] 2.23 10*3/uL 0.83-4.51 [facility] Basophil percentageOrdered B y: Dr. Everett on 09-07-2022 Basophils/100 WBC (Bld) 0.9 % 0-1 [facility] Bilirubin [Mass/Vol] 0.40 mg/dL 0.20-1.00 [facility] Comment on above: For patients on eltr ombopag therapy, use of Dimension [place] TBIL is not recommended. Chloride [Moles/Vol] 107 mmol/L 98-107 [facility] Cholesterol [Mass/Vol] 170 mg/dL <200 [facility] Comment on above: <200 mg/dL Desirable 200-240 mg/dL Borderline >240 mg/dL High Risk Eosinophils/100 WBC (Bld) 5.1 % 0-5 [facility] Glucose [Mass/Vol] 91 mg/dL 74-106 [facility] Neutrophils (Bld) [#/Vol] 4.4 10*3/uL 2.0-7.7 [facility] Neutrophils/100 WBC (Bld) 58.0 % 47-70 [facility] Potassium [Moles/Vol] 4.0 mmol/L 3.5-5.1 [facility] Protein [Mass/Vol] 7.4 g/dL 6.4-8.2 [facility] Sodium [Moles/Vol] 138 mmol/L 136-145 [facility] Triglyceride [Mass/Vol] 152 mg/dL <199 [facility] Comment on above: The drugs N-Acetylcy steine and Metamizole may falsely depress this assay.Serum Triglycerides Reference Interval Normal <150 mg/dL Borderline high 150 - 199 mg/dL High 200 - 499 mg/dL Very High > or = 500 mg/dL WBC (Bld) [#/Vol] 7.6 10*3/uL 4.4-11.0 [facility] Blood erythrocytes count (nu mber/volume)Ordered By: Dr. Everett on 09-07-2022 RBC (Bld) [#/Vol] 4.88 10*6/uL 4.2-5.4 [facility] Blood hemoglobin measurement (mass/volume)Ordered By: Dr. Everett on 09-07-2022 Hemoglobin (Bld) [Mass/Vol] 14.0 g/dL 12.0-15.0 [facility] Blood lymphocytes/100 leukoc ytesOrdered By: Dr. Everett on 09-07-2022 Lymphocytes/100 WBC (Bld) 29.3 % 19-41 [facility] Blood monocytes/100 leukocyt esOrdered By: Dr. Everett on 09-07-2022 Monocytes/100 WBC (Bld) 6.3 % 0-10 [facility] Blood platelet mean volumeOr dered By: Dr. Everett on 09-07-2022 Platelet mean volume (Bld) [Entitic vol] 8.9 fL 6.2-12.0 [facility] Determination of erythrocyte mean corpuscular volume (MCV)Ordered By: Dr. Everett on 09-07-2022 MCV (RBC) [Entitic vol] 87.9 fL 81-99 [facility] Hematocrit Auto (Bld) [Volum e fraction]Ordered By: Dr. Everett on 09-07-2022 Hematocrit (Bld) [Volume fraction] 42.9 % 37-47 [facility] - Chemistry and C hemistry - challengeOrdered By: Dr. Everett on 09-07-2022 ALP [Catalytic activity/Vol] 69 U/L 45-117 [facility] ALT [Catalytic activity/Vol] 22 U/L 13-56 [facility] CO2 [Moles/Vol] 24.0 mmol/L 21.0-32.0 [facility] Globulin (S) [Mass/Vol] 3.7 g/dL 2.2-4.2 [facility] Urea nitrogen/Creatinine [Mass ratio] 21.5 mg/mg 10-20 [facility] - Hematology and Cell countsOrdered By: Dr. Everett on 09-07-2022 Erythrocyte distribution width (RBC) [Entitic vol] 40.1 fL 35.1-43.9 [facility] Erythrocyte distribution width (RBC) [Ratio] 12.4 % 11.6-14.6 [facility] Immature granulocytes/100 WBC (Bld) 0.400 % 0.0-0.9 [facility] Comment on above: IG% - Immature Granu locytes (promyelocytes, myelocytes and metamyelocytes) > 1% indicates that a LEFT SHIFT is Present. MCH (RBC) [Entitic mass] 28.7 pg 27.0-32.0 [facility] Nucleated RBC/100 WBC (Bld) [Ratio] 0 % 0-5 [facility] MCHC Auto (RBC) [Mass/Vol]Or dered By: Dr. Everett on 09-07-2022 MCHC (RBC) [Mass/Vol] 32.6 g/dL 32-36 [facility] No Panel InformationOrdered By: Dr. Everett on 09-07-2022 Estimated GFR (MDRD) Amer 171 mL/min >60 [facility] Comment on above: GFR Calc Estimated GFR (MDRD) Non-Af Amer 142 mL/min >60 [facility] Comment on above: Non- GFR Calc Platelets bldOrdered By: Dr. Everett on 09-07-2022 Platelets (Bld) [#/Vol] 414 10*3/uL 150-450 [facility] Serum cyclic citrullinated p eptide IgG antibody assay (units/volume)Ordered By: Dr. Everett on 09-07-2022 Cyclic citrullinated peptide IgG Qn 0 units 0-19 [facility] Comment on above: Negative <20 Weak po sitive 20 - 39 Moderate positive 40 - 59 Strong positive >59Performed at: [address] [id number] Director: Akhil Marie PhD, Phone: [phone] Serum or plasma albumin luciano urement (mass/volume)Ordered By: Dr. Everett on 09-07-2022 Albumin [Mass/Vol] 3.7 g/dL 3.2-5.0 [facility] Serum or plasma albumin/glob ulin mass ratioOrdered By: Dr. Everett on 09-07-2022 Albumin/Globulin [Mass ratio] 1.0 {ratio} 0.9-2.4 [facility] Serum or plasma calcium luciano urement (mass/volume)Ordered By: Dr. Everett on 09-07-2022 Calcium [Mass/Vol] 8.8 mg/dL 8.5-10.1 [facility] Serum or plasma cholesterol in HDL measurement (mass/volume)Ordered By: Dr. Everett on 09-07-2022 Cholesterol in HDL [Mass/Vol] 39 mg/dL >40 [facility] Comment on above: The drugs N-Acetylcy steine and Metamizole may falsely depress this assay. Reference Range HDL <40 mg/dL Low HDL Cholesterol HDL >or= 60 mg/dL High HDL Cholesterol Serum or plasma cholesterol in VLDL measurement (mass/volume)Ordered By: Dr. Everett on 09-07-2022 Cholesterol in VLDL [Mass/Vol] 30 mg/dL 5-40 [facility] Serum or plasma creatinine m easurement (mass/volume)Ordered By: Dr. Everett on 09-07-2022 Creatinine [Mass/Vol] 0.56 mg/dL 0.55-1.02 [facility] Comment on above: The validity of the calculated GFR & GFRAA in patients over 70 years has not been determined. Clinical correlation is essential. Serum or plasma low density lipoprotein (LDL) cholesterol measurement (mass/volume)Ordered By: Dr. Everett on 09-07-2022 Cholesterol in LDL [Mass/Vol] 101 mg/dL 0-130 [facility] Serum or plasma urea nitroge n measurement (mass/volume)Ordered By: Dr. Everett on 09-07-2022 Urea nitrogen [Mass/Vol] 12 mg/dL 7-18 [facility] Serum rheumatoid factor dete ctionOrdered By: Dr. Everett on 09-07-2022 Rheumatoid factor Ql (S) < 10.0 IU/mL <15 [facility] Thin prep Papanicolaou smear with manual screeningOrdered By: Dr. Everett on 09-07-2022 Thin prep Papanicolaou smear with manual screening 5 U/L 15-37 [facility] Thin prep Papanicolaou smear with manual screening 7 5-15 [facility] CORONAVIRUS PCR - [facility] 05-07-2021 SARS-CoV-2 (COVID-19) RNA CHARLY+probe Ql (Unsp spec) Positive Critically abnormal NORMAL: NEGATIVE [facility] Comment on above: Result Comment: { CA LLED TO JESSICA,05/07/21,15:45,KLS { READ BACK BY JESSICA Performed By: #### [id number] #### [facility],[address] [place] [address] SEND TO ? YES Normal [facility] Comment on above: Result Comment: RESU LTS FAXED TO INFECTION CONTROL. SARS-CoV-2 THIS TEST IS BEING USED UNDER THE FDA EUA PROCEDURE. THIS ASSAY HAS BEEN VALIDATED IN THE [facility] FOR USE WITH NASOPHARYNGEAL SPECIMENS IN [facility]. INTERPRETIVE DATA LABORATORY TEST RESULTS SHOULD ALWAYS BE CONSIDERED IN THE CONTEXT OF CLINICAL OBSERVATIONS AND EPIDEMIOLOGICAL DATA IN MAKING FINAL DIAGNOSIS AND PATIENT MANAGEMENT DECISIONS. PATIENT MANAGEMENT SHOULD FOLLOW CURRENT CDC GUIDELINES. A POSITIVE TEST RESULT FOR COVID-19 INDICATES THAT RNA FROM SARS-CoV-2 WAS DETECTED, AND THE PATIENT IS INFECTED WITH THE VIRUS AND PRESUMED TO BE CONTAGIOUS. A NEGATIVE TEST RESULT FOR THIS TEST MEANS THAT SARS-CoV-2 RNA WAS NOT PRESENT IN THE SPECIMEN ABOVE THE LIMIT OF DETECTION. HOWEVER, A NEGATVIE RESULT DOES NOT RULE OUT COVID-19 AND SHOULD NOT BE USED THE SOLE BASIS FOR TREATMENT OR PATIENT MANAGEMENT DECISIONS. A NEGATIVE RESULT DOES NOT EXCLUDE THE POSSIBILITY OF COVID-19. WHEN DIAGNOSTIC TESTING IS NEGATIVE, THE POSSIBLILTY OF A FALSE NEGATIVE RESULT SHOULD BE CONSIDERED IN THE CONTEXT OF A PATIENT'S RECENT EXPOSURES AND THE PRESENCE OF CLINICAL SIGNS AND SYMPTOMS CONSISTENT WITH COVID-19. THE POSSIBILITY OF A FALSE NEGATIVE RESULT SHOULD ESPECIALLY BE CONSIDERED IF THE PATIENT'S RECENT EXPOSURES OR CLINICAL PRESENTATION INDICATE THAT COVID-19 IS LIKELY, AND DIAGNOSTIC TESTS FOR OTHER CAUSES OF ILLNESS (e.g., OTHER RESPIRATORY ILLNESS) ARE NEGATIVE. IF COVID-19 IS STILL SUSPECTED BASED ON EXPOSURE HISTORY TOGETHER WITH OTHER CLINICAL FINDINGS, RE-TESTED SHOULD BE CONSIDERED BY HEALTHCARE PROVIDERS IN CONSULTATION WITH PUBLIC HEALTH AUTHORITIES. Performed By: #### [id number] #### [facility],[address] [place], [place] [id number] Oni 03-20-2017 MARLENY Telephone (OBGYST) ABDIAZIZ LORY JOY ([id number]) 2000 [facility] Provider Department03/20/17 AIDEE THOMPSON) OBGYST During your visit today, we recorded the following information about you:Aidee Thompson CNP, CNP 03/20/2017 8:31 AM SignedPlease call patient - Dr. Jovel recommends that we have her see Dr. Patterson, a Uro-Gynecology physician for further evaluation of cervical mucocelevs large nabothian cyst. I have placed the referral, please help her schedule.Thanks.Shweta Wood RN 03/20/2017 8:58 AM SignedPt's mother answered - asked that pt [facility] Thompson CNP, CNP 03/29/2017 9:23 AM SignedLetter sent to patient with test results and recommendations along with phonenumber to schedule an appointment with Dr. Jakob Choi.Prachi Wood Psr 05/01/2017 9:09 AM SignedPatient called regarding second opinion requested by aidee thompson to see maggi choi uro-commercial reporter. Patient HAS NOT scheduled an appt yet, she is wonderingif this something that can wait until winter break from college. Pt states shehas been busy getting ready to go back to school. Please call [phone].Moe Oh RN 05/01/2017 9:20 AM SignedCalled pt.Advised ok to wait to schedule; however advised she may want to schedule inadvance if she knows her schedule.Allergies As of Date: 03/20/2017 Noted Allergy ReactionPENICILLIN G 07/23/2005 2 - Rash Comments: hives, urticarial lesions, itchingDate Reviewed: 03/20/2017Reviewed by: Aidee Thompson CNP - Fully AssessedReason for Visit: Follow Up [171]Problem List As Of Date 03/20/2017 Noted Resolved JUV RHEUM ARTHRITIS NOS-SYSTEMIC ONSET [M08.3] INVALID FOR* COAGULAT DEFECT NEC/NOS [D68.9] INVALID FOR* Status:Closed by AIDEE THOMPSON CNP on 03/29/17 [facility] CNOVon 03-19-2017 CNOV Office Visit (OBGYST) LORY OBRIEN ([id number]) 2000 FDate Time Provider Department03/19/17 2:30 PM AIDEE THOMPSON (TYLER) OBGYST During your visit today, we recorded the following information about you: Blood pressure Weight Height Last Period 114/82 98.8 kg 1.588 m 03/13/17Rachemica Thompson CNP, CNP 03/20/2017 8:30 AM Samson Lepe Mikey is a 17 year old female here to discuss irregular menstrualcycles.She states a couple of months ago, started having symptoms of urinary frequencybut would not urinate much at one time. She states this lasted about 1-2months, not currently having any symptoms.She states her period was late in December, thinks about 2 weeks late. She statesshe ws under a great deal of stress at this time, states it has been muchbetter.In December, did not have a cycle at all.Has had regular cycle in January and March.She states she notices ANDquot;something coming outANDquot; but will then notice itgoes back in. She states it is worse with heavy lifting and with moving bowels.It will cause some cramping. She has noticed this constantly for the past 2weeks but has been better since this past weekend. 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.MENSTRUAL HISTORY:Patient's last menstrual period was 03/13/2017 (exact date).Period Regularity: regular q 28-30 days;Flow Characteristics: heavy and length of flow 5-7 days;Dysmenorrhea: premenstrually, first 1-2 days of flow and throughout mensesCyclic Symptoms: none;Hormone Replacement: neverLast Pap: neverSexually active: No,Contraception: none, History of STDS: None, Patientconcerns for STD exposure: No.Past medical, surgical, social history, medications and allergies reviewed andupdated.PAST MEDICAL HISTORYDiagnosis Date- Juvenile rheumatoid arthritis (HCC)PAST SURGICAL HISTORYNo date: TONSILLECTOMY AND ADENOIDECTOMY HXSocial History Marital status: Single Spouse name: Years of education: Number of children:Social History Main Topics Smoking status: Never Smoker Smokeless status: Never Used Alcohol use: Yes Comment: rare Drug use: No Sexual activity: NoNo current outpatient prescriptions on file.No current facility-administered medications for this visit.ALLERGIESAllergen Reactions- Penicillin G Rash hives, urticarial lesions, itchingREVIEW OF SYSTEMSGENERAL: No weight loss, malaise or feversRESPIRATORY: Negative for cough, hemoptysis, wheezing, COPD, dyspnea orshortness of breathCARDIOVASCULAR: Negative for chest pain, leg swelling, hypertension, CHF orpalpitationsGI: No nausea, vomiting, or diarrheaGU: No history of dysuria, frequency or incontinenceGYN: Negative for abnormal vaginal bleeding, abnormal vaginal dischargeEXAM:VITALS:BP 114/82 Ht 5' 2.5ANDquot; (1.59m) Wt 217 lb 12.8 oz (98.8kg) LMP03/13/2017 BMI 39.18 kg/(m2).GENERAL: pleasant, female in no apparent distressCARDIAC: RRRLUNGS: CTA bilaterallyABDOMEN: soft, non-tender and no massesPELVIC: external genitalia normal, normal Bartholin's glands, urethra, [place]'sglands, no vulvar lesions, good vaginal support, physiologic discharge present,normal appearing perineal body and perianal region, + large mucocele noted onleft lateral cervix, filling speculumBIMANUAL: uterus normal size, shape and consistency, no adnexal masses andnon-tenderDr. Jovel in to repeat exam - agrees with mucocele vs large nabothian cyst.ASSESSMENT/PLAN:1. Vaginal mucocele - ICD9: 623.8, ICD10: N89.8 (primary diagnosis)Discussed management with Dr. Jovel. She recommends referral to Uro-commercial reporter () given size and pt symptomatic. Referral placed.- PAP FLUID CERVICAL SCREENING2. Lesion of cervix - ICD9: 622.9, ICD10: N88.9? Mucocele vs large nabothian cyst- PAP FLUID CERVICAL SCREENING3. Screening for cervical cancer - ICD9: V76.2, ICD10: Z12.4- PAP FLUID CERVICAL SCREENINGRachel TYLER ThompsonReferring Provider: SELF [200]Allergies As of Date: 03/19/2017 Noted Allergy ReactionPENICILLIN G 07/23/2005 2 - Rash Comments: hives, urticarial lesions, itchingDate Reviewed: 03/19/2017Reviewed by: Aidee (Tyler) TYLER Thompson - Fully AssessedReason for Visit: Irregular Menstrual Cycle [278]Primary Visit Diagnosis:Vaginal mucocele [N89.8] Other Visit Diagnoses:Lesion of cervix [N88.9] Screening for cervical cancer [Z12.4]Order(s):PAP FLUID CERVICAL SCREENING [[id number]] Order #: [id number]. #:[id number] CONSULT TO URO GYNECOLOGY [[id number]] Order #: [id number]: 1Problem List As Of Date 03/19/2017 Noted Resolved JUV RHEUM ARTHRITIS NOS-SYSTEMIC ONSET [M08.3] INVALID FOR* COAGULAT DEFECT NEC/NOS [D68.9] INVALID FOR*Medications Discontinued During This Encounter CALCIUM 600 + MINERALS TAB 0 05/28/2006 03/19/2017 Class: Historical Med Route: ORAL Sig: Take one(1) tablet daily. Disc: Reason for discontinue is not on file. FISH OIL 500 MG CAP 0 05/28/2006 03/19/2017 Class: Historical Med Route: ORAL Sig: Take one(1)capsule three times daily. Disc: Reason for discontinue is not on file. Empty Vial (FRANCES EMPTY VIAL STERILE) * 15 11 12/23/2006 03/19/2017 Class: Print RX Route: Miscell. (Med.Supl.;Non-Drugs) Sig: use one every other day Disc: Reason for discontinue is not on file. Needle (Disp) 20 G (BD DISPOSABLE NE* 1 box 3 01/09/2007 03/19/2017 Class: Print RX Route: Miscell. (Med.Supl.;Non-Drugs) Sig: use one per day Disc: Reason for discontinue is not on file. syringe w-ndl, disp,insul,1ml(BD INS* 30 11 10/14/2008 03/19/2017 Class: Print RX Route: Miscell. (Med.Supl.;Non-Drugs) Sig: use once per administation Disc: Reason for discontinue is not on file. anakinra(KINERET 100 MG/0.67 ML SUB-* 1 mo* 4 12/17/2008 03/19/2017 Route: SUBCUTANEOUS Sig: SC injection 50 mg (0.33 ml) once every other day Disc: Reason for discontinue is not on file. MULTIVITAMIN TAB 0 02/28/2006 03/19/2017 Class: OTC Route: ORAL Sig: Take one(1) tablet daily. Disc: Reason for discontinue is not on file.Letter TextLory Moore FHCRachel TYLER [id number] [address]Phone: Mkpf 2016Lory Moore [facility] [phone] Ms. Moore,It was a pleasure to see you at your recent Clinic visit. I am happy toinform you that your pap smear was normal. My office attempted to contactyou to give you further instructions, but [facility] I would recommend that you make an appointment with Dr. Jakob gee finding from your last exam, as discussed. You can call [phone] andthey can help you schedule this.Please do not hesitate to contact me with any questions.Sincerely,Kristy Thompson CNP(electronically signed to expedite mailing) Status:Closed by AIDEE THOMPSON CNP on 03/20/17 Normal [facility] CYTOLOGYon 03-19-2017 [facility]: [id number] Physician: AIDEE THOMPSON CNPSPECIMEN SUBMITTEDA: CERVICAL, SCREENING, FLUID FI NAL DIAGNOSISA. CERVICAL, SCREENING, FLUIDSatisfactory for interpretation.Excess blood.Negative for intraepithelial lesion or malignancy.This specimen has been analyzed by the ThinPrep Imaging System, [employer] imaging and review system, which assists the laboratory inevaluating cells on ThinPrep Pap tests. Following automated imaging,selected mc from every slide are reviewed by a sales operations analyst.FLOR [place] (ASCP) (Electronic Signature) CL INICAL DATA ROUTINE EXAM, HPV Testing: Yes, Reflex HPV for ASCUSDate of Last Menstrual Period:03/13/2017GROSS DESCRIPTIONGlacial Acetic Acid added.STAINSA: CERVICAL, SCREENING, FLUID THIN PREP CEREAL MILLER x Alicia Rodrigues M.D., Laboratory DirectorPatient ID #: [id number] of Report: 03/28/2017Date of Procedure: 03/19/2017Date of Receipt: 03/20/2017Submitted by: AIDEE THOMPSON CNPLocation: COR[place] OB GYNDiagnostic interpretation performed at [facility], [address] [place] [address].The Pap Smear is a screening test for cervical cancer. False negativeresults occur with all screening tests, emphasizing the need forrescreening at recommended intervals, and clinical correlation. Normal [facility] Comment on above: Performed By: #### P ERS ####[address] [phone] PROGRESSon 03-19-2017 PROGRESS HNO ID: [id number]: Aidee (Tyler) Asda Thompson: (none)Author Type: Nurse PractitionerType: Progress NotesFiled: 03/20/2017 8:30 AMNote Text:Lory Moore is a 17 year old female here to discuss irregularmenstrual cycles.She states a couple of months ago, started having symptoms of urinaryfrequency but would not urinate much at one time. She states this lastedabout 1-2 months, not currently having any symptoms.She states her period was late in December, thinks about 2 weeks late. Shestates she ws under a great deal of stress at this time, states it hasbeen much better.In December, did not have a cycle at all.Has had regular cycle in January and March.She states she notices something coming out but will then notice it goesback in. She states it is worse with heavy lifting and with moving bowels.It will cause some cramping. She has noticed this constantly for the past2 weeks but has been better since this past weekend. 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.MENSTRUAL HISTORY:Patient's last menstrual period was 03/13/2017 (exact date).Period Regularity: regular q 28-30 days;Flow Characteristics: heavy and length of flow 5-7 days;Dysmenorrhea: premenstrually, first 1-2 days of flow and throughout mensesCyclic Symptoms: none;Hormone Replacement: neverLast Pap: neverSexually active: No,Contraception: none, History of STDS: None, Patientconcerns for STD exposure: No.Past medical, surgical, social history, medications and allergies reviewedand updated.PAST MEDICAL HISTORYDiagnosis Date- Juvenile rheumatoid arthritis (HCC)PAST SURGICAL HISTORYNo date: TONSILLECTOMY AND ADENOIDECTOMY HXSocial History Marital status: Single Spouse name: Years of education: Number of children:Social History Main Topics Smoking status: Never Smoker Smokeless status: Never Used Alcohol use: Yes Comment: rare Drug use: No Sexual activity: NoNo current outpatient prescriptions on file.No current facility-administered medications for this visit.ALLERGIESAllergen Reactions- Penicillin G Rash hives, urticarial lesions, itchingREVIEW OF SYSTEMSGENERAL: No weight loss, malaise or feversRESPIRATORY: Negative for cough, hemoptysis, wheezing, COPD, dyspnea orshortness of breathCARDIOVASCULAR: Negative for chest pain, leg swelling, hypertension, CHFor palpitationsGI: No nausea, vomiting, or diarrheaGU: No history of dysuria, frequency or incontinenceGYN: Negative for abnormal vaginal bleeding, abnormal vaginal dischargeEXAM:VITALS:BP 114/82 Ht 5' 2.5 (1.59m) Wt 217 lb 12.8 oz (98.8kg) LMP03/13/2017 BMI 39.18 kg/(m2).GENERAL: pleasant, female in no apparent distressCARDIAC: RRRLUNGS: CTA bilaterallyABDOMEN: soft, non-tender and no massesPELVIC: external genitalia normal, normal Bartholin's glands, urethra,[place]'s glands, no vulvar lesions, good vaginal support, physiologicdischarge present, normal appearing perineal body and perianal region, +large mucocele noted on left lateral cervix, filling speculumBIMANUAL: uterus normal size, shape and consistency, no adnexal masses andnon-tenderDr. Jovel in to repeat exam - agrees with mucocele vs large nabothiancyst.ASSESSMEN T/PLAN:1. Vaginal mucocele - ICD9: 623.8, ICD10: N89.8 (primary diagnosis)Discussed management with Dr. Jovel. She recommends referral to Uro-commercial reporter(Dr. Choi) given size and pt symptomatic. Referral placed.- PAP FLUID CERVICAL SCREENING2. Lesion of cervix - ICD9: 622.9, ICD10: N88.9? Mucocele vs large nabothian cyst- PAP FLUID CERVICAL SCREENING3. Screening for cervical cancer - ICD9: V76.2, ICD10: Z12.4- PAP FLUID CERVICAL SCREENINGRachel TYLER Thompson Normal [facility] Vital Signs Date Time Vital Sign Value Performing Clinician Kimberlyni yolanda 09-09-2023 09:09-0500 Body height 157.[address] Donnie Everett Work Phone: [facility] 09-09-2023 09:09-0500 Body mass index (BMI) [Ratio] 41.3 kg/m2 Dr. Donnie Everett Work Phone: [facility] 09-09-2023 09:09-0500 Body temperature 97.1 [degF] Dr. Donnie Everett Work Phone: [facility] 09-09-2023 09:09-0500 Body weight 102.[address] Donnie Everett Work Phone: [facility] 09-09-2023 09:09-0500 Diastolic blood pressure 76 mm[Hg] Dr. Donnie Everett Work Phone: [facility] 09-09-2023 09:09-0500 Heart rate 92 /min Dr. Donnie Everett Work Phone: [facility] 09-09-2023 09:09-0500 Respiratory rate 16 /min Dr. Donnie Everett Work Phone: [facility] 09-09-2023 09:09-0500 SaO2% (BldA) [Mass fraction] 98 % Dr. Donnie Everett Work Phone: [facility] 09-09-2023 09:09-0500 Systolic blood pressure 112 mm[Hg] Dr. Donnie Everett Work Phone: [facility] 09-07-2022 08:46-0500 Body height 157.[address] Donnie Everett Work Phone: [facility] 09-07-2022 08:46-0500 Body mass index (BMI) [Ratio] 41.3 kg/m2 Dr. Donnie Everett Work Phone: [facility] 09-07-2022 08:46-0500 Body temperature 97.8 [degF] Dr. Donnie Everett Work Phone: [facility] 09-07-2022 08:46-0500 Body weight 102.[address] Donnie Everett Work Phone: [facility] 09-07-2022 08:46-0500 Diastolic blood pressure 78 mm[Hg] Dr. Donnie Everett Work Phone: [facility] 09-07-2022 08:46-0500 Heart rate 97 /min Dr. Donnie Everett Work Phone: [facility] 09-07-2022 08:46-0500 Respiratory rate 16 /min Dr. Donnie Everett Work Phone: [facility] 09-07-2022 08:46-0500 SaO2% (BldA) [Mass fraction] 97 % Dr. Donnie Everett Work Phone: [facility] 09-07-2022 08:46-0500 Systolic blood pressure 108 mm[Hg] Dr. Donnie Everett Work Phone: [facility] Encounters Encounter Date Encounter Type Care Provider Facility Start: 04-23-2024 End: 04-23-2024 ambulatory [facility] Facility:[facility] Start: 09-12-2023 Encounter for genera l adult medical examination without abnormal findings [facility]relle[facility] Start: 09-09-2023 End: 09-09-2023 Encounter for general adult medical examination without abnormal findings Dr. Donnie Everett Work Phone: [facility] Start: 09-09-2023 End: 09-09-[address] Donnie Everett Work Phone: [facility] Work Phone: Start: 09-09-2023 End: 09-09-[address] Donnie Everett Work Phone: [facility] Work Phone: Start: 09-09-2023 End: 09-09-2023 ambulatory [facility] Facility:[facility] Start: 09-07-2022 End: 09-07-[address] Donnie Everett Work Phone: [facility] Work Phone: Start: 09-07-[address] Donnie Everett Work Phone: [facility] Start: 09-07-2022 End: 09-07-2022 Encounter for general adult medical examination without abnormal findings Dr. Donnie Everett Work Phone: [facility] Start: 09-07-2022 End: 09-07-[address] Donnie Everett Work Phone: [facility] Start: 05-07-2021 End: 05-07-2021 ambulatory [facility] Start: 03-19-2017 End: 03-19-2017 Ambulatory AIDEE THOMPSON [facility] Plan of Treatment Date Care Activity Detail Author Start: 09-11-2024 ambulatory Ambulatory Facility:[facility] Payers Date Payer Category Payer Self-pay [id number] 2022 Unknown [id number] 1976 Unknown [id number] [id number] [id number] Unknown [id number] Unknown [id number] 2.16.8 [id number] Unknown [id number] 2.16.8 [id number] Unknown [id number] 2.16.8 [id number] Unknown [id number] 2.16.8 [id number] Social History Date Type Detail Facility Start: 09-07-2022 End: 09-09-2023 Tobacco smoking status NHIS Unknown if ever smoked [facility] Start: 2000 Sex Assigned At Female [facility] Evaluation note Note Date & Type Note Facility Evaluation note Diagnosis Onset Date Preventative health care acu te Anxiety chronic Hyperlipidemia chronic Nausea & vomiting chronic Rheumatoid arthritis chronic [facility] Work Phone: Evaluation note Note Date & Type Note Facility Evaluation note Diagnosis Onset Date Preventative health care acu te Hyperlipidemia chronic [facility] Work Phone: Summary Purpose Family History No Family History Records Found Relationship Condition Age at Onset Recorded Date/T julio cesar grandfather Congestive heart failure Unknown grandmother Neoplasm of brain Unknown father Diabetes mellitus Unknown mother Diabetes mellitus Unknown Advance Directives No Advanced Directives Records Found Advance Directive Response Recorded Date/ Time Living Will No May 31, 2020 5:35am Power of Community Advocate No May 5:35am Chief Complaint and Reason for Visit Chief Complaint 1 Y FU Reason for Visit Preventative health care Anxiety Hyperlipidemia Nausea & vomiting Rheumatoid arthritis Chief Complaint YEARLY Reason for Visit Preventative health care Hyperlipidemia Additional Source Comments INFORMATION SOURCE (unrecogn ized section and content) DATE CREATED AUTHOR 02/26/2018 [facility] DATE CREATED AUTHOR AUTHOR'S ORGANIZ ATION 05/08/2021 [facility] DATE CREATED AUTHOR AUTHOR'S ORGANIZ ATION 06/22/2023 [facility] ([place]) DATE CREATED AUTHOR AUTHOR'S ORGANIZ ATION 04/25/2024 [facility] Care Teams (unrecognized sec tion and content) Team Status: Active Member Role Status Dates Dr. Donnie Everett MD Family Provider Active Dr. Donnie Everett MD Primary Care Provider Active Team Status: Inactive Member Role Status Dates Dr. Donnie Everett MD Primary Care P dev, Attending Provider, Referring Provider Active Goals (unrecognized section and content) Goals may be documented in a n alternate sectionGoals may be documented in an alternate section FOR RECORDS PERTAINING TO PATIENTS WHO ARE OR HAVE BEEN ENROLLED IN A CHEMICAL DEPENDENCY/SUBSTANCEABUSE PROGRAM, SOME INFORMATION MAY BE OMITTED. This clinical summary was aggregated from multiple sources. Caution should be exercised in using it in the provision of clinical care. This summary normalizes information from multiple sources, and as a consequence, information in this document may materially change the coding, format and clinical context of patient data. In addition, data may be omitted in some cases. CLINICAL DECISIONS SHOULD BE BASED ON THE PRIMARY CLINICAL RECORDS. [employer] [facility]. provides no warranty or guarantee of the accuracy or completeness of information in this document.
== END | disposition home or self-care (01) ==
PROVIDERS: PCP Internal Medicine; Referring Provider Chiropractor; Visit Provider Chiropractor
DX: S46.012A Strain of muscle(s) and tendon(s) of the rotator cuff of left shoulder, initial encounter (principal); X58.XXXA Exposure to other specified factors, initial encounter
CPT/HCPCS: 73221